=== PATIENT | female | born 2000 | race Asian ===

== ENCOUNTER 2019-12-25 04:44 | Day surgery (SDC) | payer BC ==
[2019-12-25] MEDS ORDERED: Ondansetron INJ* 2 MG/ML VIAL IV ONE (05:48)
[2019-12-25] MEDS ORDERED: Ketorolac INJ* 30 MG/ML 1 ML VIAL IV PUSH ONE (05:48)
[2019-12-25] MEDS ORDERED: NS 0.9% 1000 ML** 1,000 ML IV ONE (05:48)
--- NOTE | 2019-12-25 05:49 | ED ---
Abdominal Pain/Female - HPI Summary HPI Summary: Pt. is a 19 y.o female who presents to the ER for diffuse abdominal pain that started acutely this morning. Pt. is constant and a sharp sensation. Pt. states pain initially seemed to be right flank and RLQ. Denies fever, cp, sob, cough, N /D/C, urinary sxs, vaginal bleeding/discharge. No past medical hx. Sxs are moderate in severity. No current modifying factors. - History of Current Complaint Chief Complaint: EDAbdPain Stated Complaint: PAIN PER PT Time Seen by Provider: 12/25/19 05:36 Hx Obtained From: Patient Pain Intensity: 9 Allergies/Adverse Reactions: Allergies Allergy/AdvReac Type Severity Reaction Status Date / Time No Known Allergies Allergy Verified 12/25/19 10:33 Home Medications: Home Medications NK [No Home Medications Reported] 12/25/19 [History Confirmed 12/25/19] PMH/Surg Hx/FS Hx/Imm Hx Previously Healthy: Yes - Immunization History Immunizations Up to Date: Yes Infectious Disease History: Yes Infectious Disease History: Denies: Traveled Outside the [place] in Last 30 Days - Family History Known Family History: Positive: Non-Contributory - Social History Occupation: Student Lives: Dormitory/Roommates Alcohol Use: None Substance Use Type: Reports: Marijuana Smoking Status (MU): Never Smoked Tobacco Review of Systems Constitutional: Negative Negative: Fever ENT: Negative Cardiovascular: Negative Negative: Chest Pain Respiratory: Negative Negative: Shortness Of Breath Positive: Abdominal Pain. Negative: Vomiting, Diarrhea Genitourinary: Negative Neurological: Negative All Other Systems Reviewed And Are Negative: Yes Physical Exam Triage Information Reviewed: Yes Vital Signs On Initial Exam: Initial Vitals Temp Pulse Resp BP Pulse Ox 98.2 F 91 16 116/81 100 12/25/19 04:46 12/25/19 04:46 12/25/19 04:46 12/25/19 04:46 12/25/19 04:46 Vital Signs Reviewed: Yes Appearance: Positive: Pain Distress - Pt. lying on bed with knees to chest. Appears in pain but nontoxic. Friend present. Skin: Positive: Warm, Dry Head/Face: Positive: Normal Head/Face Inspection Eyes: Positive: Normal, EOMI, GISELL Neck: Positive: Supple Respiratory/Lung Sounds: Positive: Clear to Auscultation, Breath Sounds Present Cardiovascular: Positive: Normal, RRR Abdomen Description: Positive: Other: - Abd. is soft with mild diffuse pain on palpation and marked tenderness to suprapubic region. Neg CVA tenderness. No rebound or guarding. Neurological: Positive: Normal, CN Intact II-III Psychiatric: Positive: Affect/Mood Appropriate Procedures - Sedation Patient Received Moderate/Deep Sedation with Procedure: No Diagnostics - Vital Signs Vital Signs Temp Pulse Resp BP Pulse Ox 12/25/19 05:38 76 125/78 100 12/25/19 05:08 89 130/77 100 12/25/19 04:46 98.2 F 91 16 116/81 100 - Laboratory Result Diagrams: 12/25/19 06:01 12/25/19 06:01 Lab Statement: Any lab studies that have been ordered have been reviewed, and results considered in the medical decision making process. Abdominal Pain Fem Course/Dx - Course Course Of Treatment: Pt. with acute onset lower abd. pain. She is afebrile with stable VS. Labs and u/a ordered. Pt. given IV toradol for pain. Labs show WBC of 15.7. CMP shows low K of 3.1. Negative preg. U/A negative for infection, does show small blood. Will obtain CT scan for further evaluation, possible urolithiasis. . CT per radiology: IMPRESSION: 1. NO HYDRONEPHROSIS OR NEPHROLITHIASIS. 2. MILDLY DILATED APPENDIX WITH APPENDICOLITH AT THE BASE OF MILD PERIAPPENDICEAL. INFLAMMATORY CHANGE, CONCERNING FOR EARLY ACUTE APPENDICITIS IN THE CORRECT CLINICAL. SETTING. Case discussed with surgical team [id number]. Dr. Abel plans to take pt. the OR. Examined by surgical PA in ED. Zosyn given. - Diagnoses Differential Diagnosis: Positive: Appendicitis, Constipation, Ectopic , Pelvic Inflammatory Disease, Provider Diagnoses: Appendicitis Discharge ED - Sign-Out/Discharge Documenting (check all that apply): Patient Departure - Discharge Plan Condition: Stable Disposition: ADMITTED TO [facility] Referrals: No Primary Care Phys,NOPCP [Primary Care Provider] - - Billing Disposition and Condition Condition: STABLE Disposition: Admitted to [facility]
[2019-12-25 06:08] LABS: ABS Basophils 0.1 10^3/ul (0-0.2); ABS Lymphocytes 1.6 10^3/ul (1.0-4.8); ABS Monocytes 0.6 10^3/ul (0-0.8); ABS Neutrophils 13.3 10^3/ul (1.5-7.7); Eosinophil % 0.2 %; Hematocrit 41 % (35-47); Lymphocyte % 10.4 %; Mean Corpuscular HGB Conc 34 g/dL (31-36); Mean Corpuscular Hemoglobin 30 pg (27-31); Mean Corpuscular Volume 89 fL (80-97); Mean Platelet Volume 6.6 fL (7.4-10.4); Platelet Count 303 10^3/uL (150-450); Red Blood Count 4.62 10^6 /uL (3.70-4.87); Red Cell Distribution Width 13 % (10-15); White Blood Count 15.7 10^3/uL (3.5-10.8)
[2019-12-25 06:40] LABS: ALT 16 U/L (7-52); AST 18 U/L (13-39); Albumin 4.3 g/dL (3.2-5.2); Albumin/Globulin Ratio 1.5 (1-3); Alkaline Phosphatase 63 U/L (34-104); Anion Gap 9 mmol/L (2-11); BUN/Creatinine Ratio 15.9 (8-20); Blood Urea Nitrogen 11 mg/dL (6-24); C Reactive Protein < 1.00 mg/L (<8.01); CO2 Carbon Dioxide 21 mmol/L (22-32); Chloride 108 mmol/L (101-111); EGFR African American 131.2 (>60); EGFR Non-African American 108.5 (>60); Globulin 2.9 g/dL (2-4); Glucose 109 mg/dL (70-100); Potassium 3.1 mmol/L (3.5-5.0); Sodium 138 mmol/L (135-145); Total Protein 7.2 g/dL (6.4-8.9)
[2019-12-25 06:47] LABS: HCG Pregnancy < 0.60 mIU/mL
[2019-12-25 06:55] LABS: Urine Appearance Clear; Urine Bilirubin Negative (Negative); Urine Blood 1+ (Negative); Urine Color Yellow; Urine Glucose Negative (Negative); Urine Ketones Trace (Negative); Urine Nitrite Negative (Negative); Urine Protein Negative (Negative); Urine Specific Gravity 1.016 (1.010-1.030); Urine Urobilinogen Negative (Negative)
[2019-12-25 06:57] LABS: Urine Bacteria Absent (Absent); Urine Red Blood Cell Trace(0-2/hpf) (Absent); Urine Squamous Epithelial Cell Present (Absent); Urine White Blood Cell Trace(0-5/hpf) (Absent)
--- NOTE | 2019-12-25 10:01 | HP ---
History of Present Illness - History of Present Illness Reason for Visit: Sharp Abdominal Pain History of Present Illness: Pleasant 19 yo female awloke with abdominal pain, originally mid abdomen which then focused in the RLQ. No nausea or vomiting, did have a loose bowel movement at the time of presentation of the pain. Nothing was abl to relieve the pain, continued as sharp stabbing in nature. Was unable to return to bed due to the pain, remaining curled up on the floor. She then presented to the ED - Past Surgical History Past Surgical History: Other - wisdom teeth extraction - Past Family History Family History: Other - unable to assess, patient is adopted - Past Social History Smoke: No Alcohol: None Drugs: None Review of Systems - Review of Systems Constitutional: Positive: Other - denies fever or chills, nausea or vomiting, C/ O RLQ Abdominal Pain, sharp in nature Eyes: Negative: Pain, Vision Change, Conjunctivae Inflammation, Eyelid Inflammation, Redness, Other ENT: Negative: Ear Pain, Ear Discharge, Nose Pain, Nose Discharge, Nose Congestion, Mouth Pain, Mouth Swelling, Throat Pain, Throat Swelling, Other Respiratory: Negative: Cough, Dry, Shortness of Breath, Hemoptysis, SOB with Excertion, Pleuritic Pain, Sputum, Wheezing Cardiovascular: Negative: Chest Pain, Palpitations, Orthopnea, Paroxysmal Noc. Dyspnea, Edema, Light Headedness, Other Gastrointestinal: Positive: Abdominal Pain, Diarrhea Genitourinary: Negative: Dysuria, Frequency, Incontinence, Hematuria, Retention , Other Musculoskeletal: Negative: Neck Pain, Shoulder Pain, Arm Pain, Back Pain, Hand Pain, Leg Pain, Foot Pain, Other Skin: Negative: Rash, Lesions, Jaciel, Bruising, Other Neurological: Negative: Weakness, Numbness, Incoordination, Change in Speech, Confusion, Seizures, Other - Medications/Allergies Allergies/Adverse Reactions: Allergies Allergy/AdvReac Type Severity Reaction Status Date / Time No Known Allergies Allergy Verified 12/25/19 05:12 Exam - Exam Vital Signs: Vital Signs (72 hours) 12/25/19 12/25/19 12/25/19 04:46 05:08 05:38 Temperature 98.2 F Pulse Rate 91 89 76 Respiratory 16 Rate Blood Pressure 116/81 130/77 125/78 (mmHg) O2 Sat by Pulse 100 100 100 Oximetry 12/25/19 12/25/19 12/25/19 06:00 06:28 06:38 Temperature Pulse Rate 82 75 71 Respiratory Rate Blood Pressure 127/81 116/71 (mmHg) O2 Sat by Pulse 95 100 100 Oximetry 12/25/19 12/25/19 12/25/19 07:00 07:08 07:38 Temperature Pulse Rate 72 70 86 Respiratory Rate Blood Pressure 105/67 112/77 (mmHg) O2 Sat by Pulse 100 100 99 Oximetry 12/25/19 12/25/19 12/25/19 09:19 09:21 09:36 Temperature 97.6 F Pulse Rate 86 85 Respiratory Rate Blood Pressure 116/74 (mmHg) O2 Sat by Pulse 98 100 Oximetry Laboratory Tests 12/25/19 12/25/19 06:01 06:01 WBC 15.7 H Potassium 3.1 L Laboratory Tests 12/25/19 06:01 Beta HCG, Quant < 0.60 Patient Name: LAURA BIGGS Medical Record#: [id number] Ordering Physician: Aidan GARCIA Acct.#: [id number] : 2000 Age: 19 Sex: F Location: EMERGENCY DEPARTMENT Exam Date: 12/25/19706 ADM Status: REG ER Order Information: CT ABD/PEL W/O Accession Number: [id number] CPT: 27348 CLINICAL HISTORY: right flank pain COMPARISON: None relevant available at the time of dictation. TECHNIQUE: Multiple contiguous axial CT scans were obtained of the abdomen and pelvis, without intravenous contrast enhancement. Coronal and sagittal multiplanar reformations are submitted for review. Oral contrast was not administered. FINDINGS: LUNG BASES: The lung bases are clear. LIVER: The liver is normal in shape, size, contour, and attenuation. BILE DUCTS: There is no intrahepatic or extrahepatic biliary dilatation. GALLBLADDER: The gallbladder is normal, without pericholecystic inflammatory change. PANCREAS: The pancreas is normal, without mass or ductal dilatation. SPLEEN: Normal in size and appearance. UPPER GI TRACT: Evaluation of the gastrointestinal tract is limited by incomplete gastric distention. The upper GI tract is unremarkable. SMALL BOWEL AND MESENTERY: The small bowel is normal in contour, course, and caliber. There is no obstruction or dilatation. COLON: There is a tubular, vermiform, blind-ending hollow viscus that originates from the cecum measuring up to 0.9 cm in size, consistent with the appendix. There is an appendicolith at the base. There is mild stranding of the periappendiceal fat with the tip. ADRENALS: Normal bilaterally. KIDNEYS: The kidneys are normal in shape, size, contour, and axis. There is no hydronephrosis or nephrolithiasis. BLADDER: The bladder is smooth in contour. PELVIC ORGANS: There is a 3.3 cm left ovarian cyst. AORTA: The aorta is normal. IVC: Unremarkable LYMPH NODES: There is no lymphadenopathy by size criteria. ABDOMINAL WALL: There is no evidence for abdominal wall hernia. BONES AND SOFT TISSUES: There are mild diffuse degenerative changes. OTHER: None IMPRESSION: 1. NO HYDRONEPHROSIS OR NEPHROLITHIASIS. 2. MILDLY DILATED APPENDIX WITH APPENDICOLITH AT THE BASE OF MILD PERIAPPENDICEAL INFLAMMATORY CHANGE, CONCERNING FOR EARLY ACUTE APPENDICITIS IN THE CORRECT CLINICAL SETTING This report is only to be considered final once signed by the Provider(s) as displayed in the "<Electronically Signed by >" field (s). Absence of a signature indicates the report is in a draft status and still needs to be finalized. In the event this document was created by someone other than the signing Provider, the individual initiating the document will be listed in the "Entered by:" or "Dictated by:" garcia. 1 of 2 General: Alert, Oriented x3, Cooperative, No acute distress HEENT: Atraumatic, EOMI, Mucous membr. moist/pink Lungs: Clear to auscultation, Normal air movement Cardiovascular: Regular rate, Normal S1, Normal S2 Abdomen: Soft, Other - + Referred pain to RLQ from LLQ, + Tenderness to palpation RLQ Extremities: No edema, No tenderness/swelling Skin: No rashes, No breakdown Neurological: Cranial nerves 3-12 NL Psych/Mental Status: Mental status NL, Mood NL Assessment/Plan - Assessment/Plan Assessment: 19 yo female with signs, symptoms, WBC, and CT findings consistent with acute appendictis CT IMPRESSION: 1. NO HYDRONEPHROSIS OR NEPHROLITHIASIS. 2. MILDLY DILATED APPENDIX WITH APPENDICOLITH AT THE BASE OF MILD PERIAPPENDICEAL. INFLAMMATORY CHANGE, CONCERNING FOR EARLY ACUTE APPENDICITIS IN THE CORRECT CLINICAL. SETTING Plan: IV ABX Laparoscpic Appendectomy later today Above D/W Dr Abel
[2019-12-25] MEDS ORDERED: Piperacillin/Tazobac ADVAN(*) 3.375 GM in NS 0.9% 100 ML* 100 ML IVPB ONE (10:15)
[2019-12-25] MEDS ORDERED: KCL 20 MEQ/100 ML IVPREMIX* 20 MEQ/100 ML BAG IV ONE (10:44)
--- NOTE | 2019-12-25 12:33 | PN ---
Progress Note - Progress Note Date of Service: 12/25/19 Note: Surgery Progress Note Please see full H&P by Sherwin Fregoso, but briefly patient is a healthy 19 yo F with less than one day of RLQ abdominal pain that woke her up from sleep overnight. She came to the ED and was found to have an elevated WBC and a CT scan consistent with acute appendicitis. I reviewed her vitals, labs and imaging. On physical exam she is tender in the RLQ. Informed consent was obtained for a laparoscopic, possible open appendectomy. She understands that the risks include, but are not limited to bleeding, infection, injury to nearby structures such as the intestines, colon, ovary, uterus and so forth. She understands the alternatives and benefits and wishes to proceed with surgery.
[2019-12-25] MEDS ORDERED: ceFAZolin 2 GM PREMIX in ORs 2 GM/50 ML BAG (FOR ORs ONLY) ONE (13:03)
--- NOTE | 2019-12-25 13:56 | BRIEFOPN ---
Brief Operative/Procedure Note - Operation Details Pre-Op Diagnosis: Appendicitis Post-Op Diagnosis: Appendicitis Procedures: Laparoscopic appendectomy Surgeon(s)/Proceduralists: Dr. Abel. Assist: RADHA Arnold Anesthesia: GETA. IVF 1000 mL Estimated Blood Loss: <20cc Findings: As above Specimen(s)/Culture(s) Description: Appendix Complications: None
[2019-12-25] MEDS ORDERED: oxyCODONE/Acetamin 5/325 MG* TAB PO PRN (15:10)
[2019-12-25 15:44] VITALS: BP 102/65
--- NOTE | 2019-12-26 03:07 | OP ---
DATE OF OPERATION: 12/25/19 - SDS DATE OF : [birth year] SERVICE: General Surgery. SURGEON: Doreen Abel MD. MANAGER ASSET MANAGEMENT: RADHA Heller. ANESTHESIOLOGIST: Dr. Dorado. ANESTHESIA: General endotracheal anesthesia. PRE-OP DIAGNOSIS: Acute appendicitis. POST-OP DIAGNOSIS: Acute appendicitis. OPERATIVE PROCEDURE: Laparoscopic appendectomy. SPECIMENS: Appendix. ESTIMATED BLOOD LOSS: Minimal, less than 10 cc. INDICATIONS FOR SURGERY: Ms. Noel is a very pleasant and healthy 19-year-old female who presented to the emergency room with less than one day of crampy abdominal pain that woke her up out of sleep. She was found to have an elevated white blood cell count and an abdominal CT scan confirmed acute appendicitis. She therefore gave informed consent for a laparoscopic appendectomy. She understood that the risks included, but were not limited to bleeding, infection, injury to nearby structures. She understood the alternatives and benefits and she wished to proceed. DESCRIPTION OF PROCEDURE: The patient was brought back to the operating room and placed on the operating table in the supine position. Sequential compression devices were placed in the bilateral lower extremities for DVT prophylaxis. Antibiotics were administered. General endotracheal anesthesia was induced. The patient's left arm was tucked and her abdomen was then prepped and draped in normal sterile fashion. Prior to coming to the operating room, the patient did urinate. Prior to beginning surgery, a time-out was performed verifying the patient's name, date of , and the procedure to be performed. A curvilinear incision was made in the infraumbilical fold after injecting local anesthesia. The skin was divided down through the subcutaneous tissue. The fascia was identified and elevated between 2 Josy clamps and divided. She was found to have a small umbilical hernia, which was extended in order to allow placement of the 12 mm Elizabeth trocar. After this trocar was placed, insufflation was then obtained to 15 mmHg. Upon general inspection of the abdominal cavity, there is no injury that had been made upon entry. Next, 0.25% Marcaine was infiltrated through the left lower quadrant in the lower midline and the remaining two 5 mm trocars were placed in each location under direct visualization. The attention was then turned towards the right lower quadrant. The appendix was identified very easily. It was noted to be slightly hyperemic and distended, but there was no surrounding intra-abdominal fluid, essentially no adhesions and it was not gangrenous. The mesoappendix was divided with a LigaSure and once the base of the appendix was isolated, an EndoGIA stapler with a 45 mm anand load was used to staple across the base of the appendix. The appendix was then placed into an EndoCatch and removed from the abdomen as specimen. Inspection of the staple line shows that there was a very small punctate amount of bleeding and 2 clips were used to obtain hemostasis. There was no free fluid seen within the pelvis. The staple line was again reexamined and was confirmed to be hemostatic. A final inspection of the abdominal cavity confirmed that there were no adhesions and no injury that has been made during this operation. The fascia of the 12 mm trocar site was then closed under direct visualization using 0 Vicryl suture. After this was done, desufflation was obtained and the remaining two 5 mm trocars were removed under direct visualization. All the skin incisions were closed using interrupted 4-0 Monocryl sutures. Sterile dressing was then placed. The patient's anesthesia was reversed and she was taken to the PACU in stable condition. At the end of the case, all counts were correct and I was present during the entirety of the case. [id number]/[facility] #: [id number] ROBERT
== END 2019-12-25 17:00 | disposition home or self-care (01) ==
LOC: OR 04:44 → ED 04:44 → SDS 13:10
PROVIDERS: ATTEND Surgery
DX: K35.80 Unspecified acute appendicitis (principal); R10.31 Right lower quadrant pain; R19.7 Diarrhea, unspecified; N83.202 Unspecified ovarian cyst, left side
CPT/HCPCS: 36415; 74176; 80053; 81003; 81015; 83690; 84702; 85025; 86140; 87086; 88304; 96374; 96375; 99285; C1776; J0690; J1885; J2405